=== PATIENT | male | born 1945 | race Caucasian/White ===

== ENCOUNTER → 2018-11-15 | Outpatient (CLI) | payer MEDICARE, OTHER ==
--- NOTE | 2018-11-15 13:17 | RADIOLOGY REPORT (SQ) ---
EXAM DESCRIPTION: U/S SCROTUM W/DOPPLER COMPLETED DATE/TIME: 11/15/2018 12:44 pm REASON FOR STUDY: N50.819 TESTICULAR PAIN, UNSPECIFIED N50.819 TESTICULAR PAIN, UNSPECIFIED COMPARISON: None. TECHNIQUE: Static and realtime sweeney scale imaging of the scrotum and testes. Selected color Doppler and spectral images recorded to document blood flow. LIMITATIONS: None. FINDINGS: RIGHT: TESTICLE: Normal size. Normal echotexture. Normal blood flow. No mass. EPIDIDYMIS: Normal. HYDROCELE OR VARICOCELE: No. HERNIA OR EXTRA-TESTICULAR MASS: No. OTHER: No other significant finding. LEFT: TESTICLE: Normal size. Normal echotexture. Normal blood flow. No mass. EPIDIDYMIS: Normal. HYDROCELE OR VARICOCELE: No. HERNIA OR EXTRA-TESTICULAR MASS: No. OTHER: No other significant finding. IMPRESSION: NORMAL SCROTAL ULTRASOUND. NO EVIDENCE OF TESTICULAR MASS OR TORSION. TECHNICAL DOCUMENTATION: JOB ID: [id number] [employer]- All Rights Reserved Reading location - IP/workstation name: [email or web address]
== END ==
LOC: RAD 10:22
PROVIDERS: ATTEND Internal Medicine
DX: N50.819 Testicular pain, unspecified (principal)
CPT/HCPCS: 76870; 93976

== ENCOUNTER 2019-05-15 20:24 | Emergency (ER) | payer MEDICARE, OTHER ==
[2019-05-15 20:30] VITALS: BP 194/98
--- NOTE | 2019-05-15 20:49 | ER Document Report ---
HPI - HPI Patient complains to provider of: right wrist pain Time Seen by Provider: 05/15/19 20:43 Onset: This morning Onset/Duration: Sudden Quality of pain: Achy Context: 73-year-old male presents the emergency department with complaints of right wrist pain. Reports he was walking his dog and they took off and he fell on his wrist. He reports he was able to go golfing all day but his wrist started hurting later on. He reports pain with supination pronation. No obvious deformity. Denies past medical history of injury to his wrist. Associated Symptoms: None Exacerbated by: Movement Relieved by: Denies Similar symptoms previously: No Recently seen / treated by doctor: No Past Medical History - General Information source: Patient - Social History Smoking Status: Former Smoker Frequency of alcohol use: None Drug Abuse: None Family History: None Patient has suicidal ideation: No Patient has homicidal ideation: No - Past Medical History Cardiac Medical History: Reports: Hx Hypertension Denies: Hx Coronary Artery Disease, Hx Heart Attack Pulmonary Medical History: Denies: Hx Asthma, Hx Bronchitis, Hx COPD, Hx Pneumonia Neurological Medical History: Denies: Hx Cerebrovascular Accident, Hx Seizures Musculoskeletal Medical History: Reports Hx Arthritis - Generalized Surgical Hx: Negative Past Surgical History: Denies: Hx Pacemaker - Immunizations Hx Diphtheria, Pertussis, Tetanus Vaccination: Yes Hx Pneumococcal Vaccination: 07/29/12 Vertical Provider Document - CONSTITUTIONAL Agree With Documented VS: Yes Exam Limitations: No Limitations General Appearance: WD/WN, No Apparent Distress - Patient laughing - INFECTION CONTROL TRAVEL OUTSIDE OF THE [place] IN LAST 30 DAYS: No - HEENT HEENT: Atraumatic, Normocephalic - NECK Neck: Supple - RESPIRATORY Respiratory: No Respiratory Distress - CARDIOVASCULAR Cardiovascular: Regular Rate - MUSCULOSKELETAL/EXTREMETIES Musculoskeletal/Extremeties: MAEW, FROM, Tender - Right wrist tender to palpate dorsally no obvious deformity no swelling no erythema no ecchymosis good radial pulse cap refill less than 3 seconds - NEURO Level of Consciousness: Awake, Alert, Appropriate Motor/Sensory: No Motor Deficit - DERM Integumentary: Warm, Dry Adult Front & Back Diagram: 1 - Patient reports pain Course - Re-evaluation Re-evalutation: 05/15/19 20:47 73-year-old male presents emergency department with right wrist pain after he fell while walking his dogs. Patient was able to golf all day. He was offered pain medication here but declines. X-ray ordered. Patient is right-hand dominant. 05/15/19 21:43 Wrist X-Ray 05/15/19 20:45 IMPRESSION: No acute fracture. X-ray negative. Patient instructed on this Isidro wrap applied. Patient reports he felt better after Isidro wrap. He was instructed to follow-up with primary care for recheck and Ortho referral as indicated. He verbalized understanding to all instructions. Dictation of this chart was performed using voice recognition software; therefore, there may be some unintended grammatical errors. - Vital Signs Vital signs: Temp Pulse Resp BP Pulse Ox 98.5 F 79 194/98 H 100 05/15/19 20:29 05/15/19 20:29 05/15/19 20:29 05/15/19 20:29 - Diagnostic Test Radiology reviewed: Image reviewed, Reports reviewed Procedures - Immobilization Right Wrist Immobilizer type: Isidro wrap Performed by: PCT Post-Proc Neuro Vasc Exam: Unchanged from pre-exam Discharge - Discharge Clinical Impression: Right wrist pain Condition: Stable Disposition: HOME, SELF-CARE Instructions: Isidro Wrap ([facility]), Use of [id number] Ibuprofen ([facility]), Ice & Elevation ([facility]) Additional Instructions: *You have been evaluated for right wrist pain *Maintain the isidro wrap for comfort *Rest/Ice/Elevate your wrist *Follow up with your primary care within 1 week for recheck and referral to orthopedics as indicated. *Take Motrin as indicated for pain *Return to ED for worsening condition, changes, needs Referrals: LAYLA DYSON MD [Primary Care Provider] - Follow up in 1 week
--- NOTE | 2019-05-15 21:28 | RADIOLOGY REPORT (SQ) ---
XR WRIST 3 OR MORE VIEWS BILATERAL CLINICAL STATEMENT: fall pain COMPARISON: None FINDINGS: Bony alignment is anatomic. There is no fracture or dislocation. The soft tissues are unremarkable. Mild deformity of the distal radius and ulna appears well-corticated, consistent with old injury. IMPRESSION: No acute fracture.
== END 2019-05-15 21:41 | disposition home or self-care (01) ==
LOC: ER 20:24
DX: M25.531 Pain in right wrist (principal); W18.39XA Other fall on same level, initial encounter; Y93.K1 Activity, walking an animal; I10 Essential (primary) hypertension

== ENCOUNTER → 2019-05-31 | Outpatient (CLI) | payer MEDICARE, OTHER ==
[2019-05-31 14:30] LABS: ABSOLUTE EOSINOPHILS # (AUTO) 0.2 10^3/uL (0.0-0.6); ABSOLUTE LYMPHOCYTES (AUTO) 1.7 10^3/uL (0.5-4.7); ABSOLUTE MONOCYTES (AUTO) 0.7 10^3/uL (0.1-1.4); ABSOLUTE NEUT (AUTO) 2.6 10^3/uL (1.7-8.2); BASOPHILS % (AUTO) 0.8 % (0-2); EOSINOPHILS % (AUTO) 3.3 % (0-6); HEMATOCRIT 39.6 % (37.9-51.0); HEMOGLOBIN 13.8 g/dL (13.5-17.0); LYMPHOCYTES % (AUTO) 33.1 % (13-45); MEAN CORPUSCULAR HEMOGLOBIN 30.5 pg (27.0-33.4); MEAN CORPUSCULAR HGB CONC 34.9 g/dL (32.0-36.0); MEAN CORPUSCULAR VOLUME 88 fl (80-97); RED BLOOD COUNT 4.53 10^6/uL (4.35-5.55); RED CELL DISTRIBUTION WIDTH 13.2 % (11.5-14.0); SEGMENTED NEUTROPHILS % (AUTO) 49.8 % (42-78); TOTAL CELLS COUNTED % (AUTO) 100 %; WHITE BLOOD COUNT 5.3 10^3/uL (4.0-10.5)
[2019-05-31 14:48] LABS: PLATELET COUNT 37 10^3/uL (150-450)
== END ==
LOC: OD 13:41
PROVIDERS: ATTEND Surgery
DX: D69.6 Thrombocytopenia, unspecified (principal)
CPT/HCPCS: 36415; 85025

== ENCOUNTER → 2019-08-16 | Outpatient (CLI) | payer MEDICARE, OTHER ==
--- NOTE | 2019-08-16 10:35 | RADIOLOGY REPORT (SQ) ---
EXAM DESCRIPTION: KNEE LEFT 2 VIEWS COMPLETED DATE/TIME: 08/16/2019 10:26 am REASON FOR STUDY: PAIN IN LEFT KNEE M25.562 PAIN IN LEFT KNEE COMPARISON: None. NUMBER OF VIEWS: Two views. TECHNIQUE: AP and lateral radiographic images acquired of the left knee. LIMITATIONS: None. FINDINGS: MINERALIZATION: Normal. BONES: No acute fracture or dislocation. No worrisome bone lesions. No significant osteophytes. JOINT: No effusion. No chondrocalcinosis. OTHER: No other significant finding. IMPRESSION: NEGATIVE STUDY OF THE LEFT KNEE. NO EXPLANATION FOR PAIN. TECHNICAL DOCUMENTATION: JOB ID: [id number] 2010 [employer]- All Rights Reserved Reading location - IP/workstation name: [email or web address]
== END ==
LOC: OD 10:09
PROVIDERS: ATTEND Internal Medicine
DX: M25.562 Pain in left knee (principal)

== ENCOUNTER → 2020-05-06 | Outpatient (CLI) | payer MEDICARE, OTHER ==
--- NOTE | 2020-05-06 12:34 | RADIOLOGY REPORT (SQ) ---
EXAM DESCRIPTION: U/S ABDOMEN COMPLETE W/DOPPLER IMAGES COMPLETED DATE/TIME: 05/06/2020 8:59 am REASON FOR STUDY: R94.5 ABNORMAL RESULTS OF LIVER FUNCTION STUDIES R94.5 ABNORMAL RESULTS OF LIVER FUNCTION STUDIES COMPARISON: 09/15/2012 TECHNIQUE: Dynamic and static grayscale images acquired of the abdomen and recorded on PACS. Additio nal selected color Doppler and spectral images recorded. Note: Study does not meet criteria for complete doppler/duplex scan LIMITATIONS: None. FINDINGS: PANCREAS: Echogenic echotexture maybe on the basis of fatty infiltration. LIVER: The liver measures 14.3 cm in length, normal size. Question of hyperechoic area 1.1 x 1.1 x 1.0 cm in the right hepatic lobe. LIVER VASCULATURE: Normal directional flow of the main portal vein and hepatic veins. GALLBLADDER: Interval cholecystectomy. ULTRASOUND-DETECTED GAMBOA'S SIGN: Negative. INTRAHEPATIC DUCTS AND COMMON DUCT: CBD measures 5.0 mm normal. The intrahepatic ducts normal calibe r. No filling defects. INFERIOR VENA CAVA: Normal flow. AORTA: No aneurysm. RIGHT KIDNEY: The right kidney measures 9.7 cm in length, normal size. Normal echogenicity. No david id or suspicious masses. No hydronephrosis. No calcifications. LEFT KIDNEY: Prior left nephrectomy. SPLEEN: The spleen measures 10.3 cm in length, normal size. PERITONEAL AND PLEURAL SPACES: No ascites or effusions. OTHER: No other significant finding. IMPRESSION: 1. Interval cholecystectomy since the prior study dated 09/15/2012. 2. Prior left nephrectomy. 3. Question of a hyperechoic area within the right hepatic lobe. Further evaluation with CT Liver w ith and without contrast suggested. 5. Additional findings as above. TECHNICAL DOCUMENTATION: JOB ID: [id number] [employer]- All Rights Reserved Reading location - IP/workstation name: [email or web address]
== END ==
LOC: RAD 08:14
PROVIDERS: ATTEND Internal Medicine
DX: R94.5 Abnormal results of liver function studies (principal)
CPT/HCPCS: 76700; 93976

== ENCOUNTER → 2020-05-21 | Outpatient (CLI) | payer MEDICARE, OTHER ==
--- NOTE | 2020-05-21 11:47 | RADIOLOGY REPORT (SQ) ---
EXAM DESCRIPTION: CT ABD/PELVIS WITH IV ORAL IMAGES COMPLETED DATE/TIME: 05/21/2020 8:22 am REASON FOR STUDY: US/ ABN FINDINGS W/ LIVER R93.2 ABNORMAL FINDINGS ON DX IMAGING OF LIVER AND BILI GONZALEZ T hyperechoic region in the right hepatic lobe. Cholecystectomy. COMPARISON: Abdominal ultrasound 05/06/2020. Abdominal ultrasound 10/24/2010. TECHNIQUE: CT scan of the abdomen and pelvis performed using helical scanning technique with dynamic intravenous contrast injection. No oral contrast. Images reviewed with lung, soft tissue, and bone windows. Reconstructed coronal and sagittal MPR images reviewed. Delayed images for evaluation of the urinary system also acquired. All images stored on PACS. All CT scanners at this facility use dose modulation, iterative reconstruction, and/or weight based d osing when appropriate to reduce radiation dose to as low as reasonably achievable (ALARA). [facility]: Dose Right [facility]: CareDose [facility]: Dose Right [facility]: Teradose 4D [facility]: [employer] CONTRAST TYPE AND DOSE: contrast/concentration: Isovue 300.00 mmol/ml; Total Contrast Delivered: 74. 0 ml; Total Saline Delivered: 46.0 ml RENAL FUNCTION: GFR > 60. RADIATION DOSE: CT Rad equipment meets quality standard of care and radiation dose reduction techniq ues were employed. CTDIvol: 3.8 - 3.8 mGy. DLP: 396 mGy-cm.. LIMITATIONS: None. FINDINGS: LOWER CHEST: Indeterminate 1.5 x 1.2 cm solid nodule at the right lung base (image 19) see s. No focal consolidation or pleural effusion. LIVER: The liver has normal size and contour. There is mild diffuse hepatic steatosis. Within the r ight hepatic lobe near the gallbladder fossa there is a 1.2 cm hypodense lesion which demonstrates gr adual fill-in on delayed phase images, corresponding to the hyperechoic lesion on ultrasound. This h as been stable since previous abdominal ultrasound in 2010 and is consistent with a benign hepatic he mangioma. No suspicious hepatic mass. Hepatic and portal veins are patent. No biliary ductal dilat ion. SPLEEN: Normal size. No focal lesions. PANCREAS: No masses. No significant calcifications. No adjacent inflammation or peripancreatic fluid collections. Pancreatic duct not dilated. GALLBLADDER: Surgically absent. ADRENAL GLANDS: No significant masses or asymmetry. RIGHT KIDNEY AND URETER: No solid masses. No significant calcifications. No hydronephrosis or hyd roureter. LEFT KIDNEY AND URETER: Post left nephrectomy. Small amount of soft tissue adjacent to the nephrecto my clips measures about 1.2 x 1.1 cm. AORTA AND VESSELS: Calcified and noncalcified atherosclerotic plaque. No dissection or plaque ulcera tion. No aneurysm. Renal arteries, SMA, celiac without stenosis. RETROPERITONEUM: No retroperitoneal adenopathy, hemorrhage or masses. BOWEL AND PERITONEAL CAVITY: There is a left inguinal hernia containing a loop of sigmoid colon with abdominal wall defect measuring 1.5 cm diameter. No fluid or inflammatory change in the hernia sac. No bowel obstruction. No bowel wall thickening or inflammatory change. APPENDIX: Normal. PELVIS: No mass. No free fluid. Normal bladder. Surgical clips bilateral scrotum probably previous v asectomy. ABDOMINAL WALL: No masses. Left inguinal hernia as described above. BONES: Partial sacralization right L5 transverse process. No suspicious bone lesions. OTHER: No other significant finding. IMPRESSION: 1. Benign hepatic hemangioma corresponds to the finding on ultrasound. No suspicious hepatic lesions . 2. Indeterminate solid nodule right lung base. Correlation with any previous outside CT images recom mended. If no previous imaging is available, consider further evaluation with PET CT or three-month follow-up CT chest to evaluate for stability. 3. Small amount of soft tissue at the left nephrectomy bed may represent postoperative change. Clini francisco correlation for reason for nephrectomy recommended. If this was performed for malignancy, compar breann with any previous outside imaging is recommended. if no previous outside imaging is available fo llow-up CT in 3 months is recommended to confirm stability. 4. Mild hepatic steatosis. 5. Left inguinal hernia containing sigmoid colon. No bowel obstruction. TECHNICAL DOCUMENTATION: JOB ID: [id number] Quality ID # [id number]: Final reports with documentation of one or more dose reduction techniques (e.g., Au tomated exposure control, adjustment of the mA and/or kV according to patient size, use of iterative reconstruction technique) 2010 [facility]- All Rights Reserved Reading location - IP/workstation name: [email or web address]
== END ==
LOC: RAD 09:12
PROVIDERS: ATTEND Internal Medicine
DX: R93.2 Abnormal findings on diagnostic imaging of liver and biliary tract (principal)
CPT/HCPCS: 74177; 82565

== ENCOUNTER → 2020-06-04 | Outpatient (CLI) | payer MEDICARE, OTHER ==
--- NOTE | 2020-06-05 11:16 | RADIOLOGY REPORT (SQ) ---
EXAM DESCRIPTION: PET CT SKULL/THIGH IMAGES COMPLETED DATE/TIME: 06/04/2020 10:33 am REASON FOR STUDY: R91.1 SOLITARY PULMONARY NODULE R91.1 SOLITARY PULMONARY NODULE COMPARISON: CT 05/21/2020, no prior pets RADIONUCLIDE AND DOSE: 10.68 mCi F18 FDG The route of agent administration: Intravenous FASTING BLOOD SUGAR: 173 mg/dl CONTRAST TYPE AND DOSE: No CT contrast given. TECHNIQUE: Blood glucose level was verified. Above dose of FDG was injected intravenously. 2-D seg mented attenuation correction images were obtained from the base of the skull to the midthighs. Nonc ontrast CT images were obtained for attenuation correction and fusion with emission images. CT image s were performed without oral or intravenous contrast and are not sensitive for parenchymal lesions. A series of overlapping emission PET images were obtained. Images reviewed and manipulated at [facility] work station by the radiologist. Images stored on PACS. LIMITATIONS: None. FINDINGS: HEAD AND NECK: No areas of abnormal metabolic activity in the soft tissues of the head and neck. CHEST: Multifocal irregular nodular opacity within the left upper lobe along the major fissure. Larg est discrete nodular component measures 7.6 mm (series 3, image 94) with low level FDG uptake (max BARCENAS V 2.8). Right basilar nodule is grossly stable in size measuring 15 x 12 mm (series 3, image 132) an d demonstrates low level uptake (max SUV 2.5). No other discrete areas of pathologic uptake within t he thorax. ABDOMEN AND PELVIS: Nonfocal background hepatic activity max SUV 3.8. No areas of pathologic uptake within the abdomen or pelvis. Physiologic activity noted within the gastrointestinal genitourinary s ystems. PROXIMAL LOWER EXTREMITIES: No areas of abnormal metabolic activity in the soft tissues of the lower extremities. BONES: No abnormal metabolic activity in the visualized skeleton. ADDITIONAL CT FINDINGS: Multinodular left upper lobe opacity as above. Right lower lobe 15 mm nodule , grossly stable and as detailed above. Coronary atherosclerosis. No acute intra-abdominal/pelvic f indings. Prior cholecystectomy. Status post left nephrectomy. Fat containing bilateral inguinal he rnias. No acute bony abnormality. No discrete lytic or blastic osseous lesions. Partial sacralizat ion of L5 on the right. OTHER: No other significant findings. IMPRESSION: 1. Multifocal irregular nodular opacity within the left upper lobe along the major fiss ure with largest discrete nodular component measuring 7.6 mm and demonstrating low level FDG uptake ( max SUV 2.8) which is below background hepatic activity. Grossly stable 15 mm right basilar nodule a lso with low level uptake (max SUV 2.5). Findings indeterminate and may represent infectious/inflamm atory sequela although neoplasm is not entirely excluded. Recommend continued follow-up CT to confir m stability/resolution. 2. No additional areas of pathologic uptake throughout remainder of the exam. TECHNICAL DOCUMENTATION: JOB ID: [id number] 2010 [employer] All Rights Reserved Reading location - IP/workstation name: [email or web address]
== END ==
LOC: RAD 08:05
PROVIDERS: ATTEND Internal Medicine
DX: R91.1 Solitary pulmonary nodule (principal); J98.4 Other disorders of lung
CPT/HCPCS: 78815; A9552

== ENCOUNTER 2020-06-25 14:07 | Emergency (ER) | payer MEDICARE ==
--- NOTE | 2020-06-25 16:10 | EKG REPORT ---
SEVERITY:- OTHERWISE NORMAL ECG - SINUS TACHYCARDIA : Confirmed by: Jeffery Villa MD 25-Jun-2020 16:10:07
--- NOTE | 2020-06-25 16:49 | RADIOLOGY REPORT (SQ) ---
EXAM DESCRIPTION: CHEST SINGLE VIEW IMAGES COMPLETED DATE/TIME: 06/25/2020 1:39 pm REASON FOR STUDY: SOB COMPARISON: 02/18/2012 EXAM PARAMETERS: NUMBER OF VIEWS: One view. TECHNIQUE: Single frontal radiographic view of the chest acquired. RADIATION DOSE: NA LIMITATIONS: None. FINDINGS: LUNGS AND PLEURA: No opacities, masses or pneumothorax. No pleural effusion. MEDIASTINUM AND HILAR STRUCTURES: No masses. Contour normal. HEART AND VASCULAR STRUCTURES: Heart normal in size. Normal vasculature. BONES: No acute findings. HARDWARE: None in the chest. OTHER: No other significant finding. IMPRESSION: NO ACUTE RADIOGRAPHIC FINDING IN THE CHEST. TECHNICAL DOCUMENTATION: JOB ID: [id number] 2010 [employer]- All Rights Reserved Reading location - IP/workstation name: [email or web address]
[2020-06-25 16:52] LABS: HEMATOCRIT 33.6 % (37.9-51.0); HEMOGLOBIN 11.4 g/dL (13.5-17.0); MEAN CORPUSCULAR VOLUME 88 fl (80-97); PLATELET COUNT 236 10^3/uL (150-450); RED CELL DISTRIBUTION WIDTH 16.9 % (11.5-14.0); WHITE BLOOD COUNT 12.1 10^3/uL (4.0-10.5)
[2020-06-25 16:56] LABS: ALBUMIN 2.9 g/dL (3.5-5.0); ALKALINE PHOSPHATASE 90 U/L (38-126); ANION GAP 5 (5-19); ASPARTATE AMINO TRANSFERASE 18 U/L (17-59); BILIRUBIN,DIRECT 0.2 mg/dL (0.0-0.4); BILIRUBIN,TOTAL 0.8 mg/dL (0.2-1.3); BLOOD UREA NITROGEN 24 mg/dL (7-20); CALCIUM 8.9 mg/dL (8.4-10.2); CARBON DIOXIDE 26 mmol/L (22-30); CHLORIDE 106 mmol/L (98-107); GLUCOSE 106 mg/dL (75-110); POTASSIUM 4.6 mmol/L (3.6-5.0)
[2020-06-25 16:58] LABS: TOTAL PROTEIN 6.2 g/dL (6.3-8.2)
[2020-06-25 17:01] LABS: CREATINE KINASE < 20 U/L (55-170)
[2020-06-25 17:12] LABS: CREATINE KINASE MB < 0.22 ng/mL (<4.55); TROPONIN I < 0.012 ng/mL
[2020-06-25 17:16] LABS: ABSOLUTE MONOCYTES # (MANUAL) 0.6 10^3/uL (0.1-1.4); BAND NEUTROPHILS % (MANUAL) 2 % (3-5); BASOPHILS % (MANUAL) 0 % (0-2); EOSINOPHILS % (MANUAL) 1 % (0-6); LYMPHOCYTES % (MANUAL) 8 % (13-45); METAMYELOCYTES % (MANUAL) 1 % (0-1); MONOCYTES % (MANUAL) 5 % (3-13); SEGMENTED NEUTROPHILS % (MAN) 83 % (42-78); TOTAL CELLS COUNTED 100
--- NOTE | 2020-06-25 17:18 | ER Document Report ---
ED General - General Chief Complaint: Arrhythmia Stated Complaint: SHORT OF BREATH Time Seen by Provider: 06/25/20 17:18 Primary Care Provider: LAYLA DYSON MD [Primary Care Provider] - Follow up as needed TRAVEL OUTSIDE OF THE [place] IN LAST 30 DAYS: No - HPI Notes: 74-year-old male presents with shortness of breath. Patient has been experiencing shortness of breath, more so dyspnea on exertion for the past 2 weeks. Patient states that initially started on a Wednesday evening. He states that he had worked 10 hours that day, there was a lot of walking involved and it was warm out. When he came home at night he said he felt done, he was fatigued and this is when the shortness of breath developed. Patient noticed that this past Wednesday, 2 days ago, he was attempting to walk upstairs, he made it to about the 8 step and became short of breath, had to stop and catch his breath. He has noted similar episodes of this over the past 2 days. He states that he will have to take deep breaths in order to help catch his breath. He also has had a cough for the past 3 days, nonproductive, described as a scratchy feeling. He denies fever. He denies chest pain. Though notes that intermittently he will have a tingle on the left side of his chest. No GI symptoms. He reports compliance with his medications, which do include lisinopril and Coreg. He states that he went to his doctor's office today to be evaluated for symptoms, he was found to be tachycardic to the 130s therefore sent to the ED for evaluation. Of note patient has recently discontinued steroids. Patient states that he was going to have a hernia surgery, however was found that his platelets were low therefore he was started on 60 mg prednisone daily. He states that he was on 60 mg daily for about 30 days. He then saw Dr. Blake who started a taper, was cut back to 2 pills/day, and last week was stopped from all steroids. - Related Data Allergies/Adverse Reactions: No Known Allergies Allergy (Verified 06/25/20 16:07) Home Medications: patient states 'should all be in my file' Past Medical History - General Information source: Patient - Social History Smoking Status: Never Smoker Family History: None - Past Medical History Cardiac Medical History: Reports: Hx Hypertension Denies: Hx Coronary Artery Disease, Hx Heart Attack Pulmonary Medical History: Denies: Hx Asthma, Hx Bronchitis, Hx COPD, Hx Pneumonia Neurological Medical History: Denies: Hx Cerebrovascular Accident, Hx Seizures Musculoskeletal Medical History: Reports Hx Arthritis - Generalized Past Surgical History: Denies: Hx Pacemaker - Immunizations Hx Diphtheria, Pertussis, Tetanus Vaccination: Yes Hx Pneumococcal Vaccination: 07/29/12 Review of Systems - Review of Systems Constitutional: denies: Fever EENT: No symptoms reported Cardiovascular: Heart racing. denies: Chest pain Respiratory: Short of breath Gastrointestinal: denies: Abdominal pain, Nausea, Vomiting Genitourinary: No symptoms reported Male Genitourinary: No symptoms reported Musculoskeletal: No symptoms reported Skin: No symptoms reported Hematologic/Lymphatic: No symptoms reported Neurological/Psychological: No symptoms reported Physical Exam - Vital signs Vitals: Temp Pulse Resp BP Pulse Ox 97.4 F 137 H 16 103/71 98 06/25/20 14:39 06/25/20 14:39 06/25/20 14:39 06/25/20 14:39 06/25/20 14:39 - General General appearance: Appears well, Alert In distress: None - HEENT Head: Normocephalic, Atraumatic Extraocular movements intact: Yes Pupils: PERRL - Respiratory Respiratory status: No: Labored, Tachypnea Breath sounds: Normal Notes: Speaks in full sentences - Cardiovascular Rhythm: Regular, Tachycardia Heart sounds: Normal auscultation Normal capillary refill: Yes - Abdominal Tenderness: Nontender - Extremities General lower extremity: No: Edema - Neurological Neuro grossly intact: Yes Cognition: Normal Orientation: AAOx4 - Psychological Associated symptoms: Normal affect - Skin Skin Temperature: Warm Course - Re-evaluation Re-evalutation: 74-year-old male history of hypertension here with dyspnea on exertion x2 weeks. Seen at primary care's office today and was found to be tachycardic. On exam patient is alert and well-appearing, he is tachycardic, otherwise hemodynamically stable. Lungs are clear, no peripheral edema. EKG with sinus tachycardia, otherwise nonischemic. Chest x-ray without consolidation. Will obtain CTA chest to evaluate for PE given the GREGORY and tachycardia, will also able to get a good look at the lung parra to see if there is an occult pneumonia present. No known Covid exposures, so was concerned for control given the current pandemic. Additionally, potentially related to acute steroid withdrawal. 06/25/20 19:31 Mild leukocytosis, with increased neutrophils, infection versus steroid response. Electrolytes within normal limits. Creatinine mild elevation, no recent for comparison. Troponin negative. No elevation of BNP. Random cortisol is not low. CTA chest has resulted. There is no evidence of PE. There is a right lower lobe nodule again demonstrated, measurements fairly consistent from previous, along with 2 other pulmonary nodules which are overall read as not significantly changed. Comments that there is some patchy opacities in the lateral left upper lobe, decreased from prior examination and probably representing improving infectious process. Additionally, on one image there appears to be a small penetrating ulcer to the distal aortic arch. Consider this to be an incidental finding of the descending aorta. Reviewed patient's previous imaging, I do not see any recent CT chest, therefore consider the patchy infiltrates of the left lobe to potentially be an acute process. 06/25/20 19:33 Tachycardia is improving 06/25/20 19:40 Patient updated on results so far, he reports he is feeling better, heart rate ranging 97 to low 100s in the room 06/25/20 19:[address] Dyson patient's work-up today. Agrees to treat the possible pneumonia. I discussed the need for outpatient referral to vascular or cardiothoracic surgery so that the atherosclerosis can be followed up. 06/25/20 22:54 Patient has remained stable while in the emergency department. He continues to be well-appearing, he feels comfortable going home. Return precautions given, stable at time of discharge. - Vital Signs Vital signs: Temp Pulse Resp BP Pulse Ox 97.5 F 137 H 18 120/85 97 06/25/20 19:10 06/25/20 14:39 06/25/20 22:01 06/25/20 22:00 06/25/20 22:01 - Laboratory Results Result Diagrams: 06/25/20 16:19 06/25/20 16:19 Laboratory Results Interpreted: 06/25/20 06/25/20 16:19 16:19 WBC 12.1 H RBC 3.80 L Hgb 11.4 L Hct 33.6 L RDW 16.9 H Seg Neuts % (Manual) 83 H Band Neutrophils % 2 L Lymphocytes % (Manual) 8 L Abs Neuts (Manual) 10.4 H BUN 24 H Creatinine 1.39 H Est GFR (MDRD) Non-Af 50 L Creatine Kinase < 20 L Total Protein 6.2 L Albumin 2.9 L Critical Laboratory Results Reviewed: No Critical Results - Radiology Results Critical Radiology Results Reviewed: No Critical Results Discharge - Discharge Clinical Impression: Aortic arch atherosclerosis CAP (community acquired pneumonia) Qualifiers: Laterality: left Lung location: upper lobe of lung Qualified Code(s): J18.9 - Pneumonia, unspecified organism Disposition: HOME, SELF-CARE Additional Instructions: Please begin a course of antibiotics. Please call Dr. Schmid tomorrow morning to discuss follow-up. As discussed, there is evidence of atherosclerotic ulcer on your aorta, I discussed with Dr. Miranda, please be sure you receive a referral to a vascular surgeon. Return to the emergency department for any concerning worsening symptoms. Prescriptions: Amoxicillin/Potassium Clav [Augmentin 875-125 Tablet] 1 tab PO NOW 7 Days #14 tablet Azithromycin [Zithromax 250 mg Tablet] 250 mg PO ASDIR PRN #6 tablet PRN Reason: Referrals: LAYLA DYSON MD [Primary Care Provider] - Follow up as needed
[2020-06-25 17:21] LABS: PLATELET COMMENT ADEQUATE; POIKILOCYTOSIS SLIGHT
[2020-06-25 17:22] LABS: ANISOCYTOSIS 1+
[2020-06-25] MEDS ORDERED: RINGERS SOLUTION,LACTATED 1,000 ML IV ONE ×2 (17:29→19:47)
--- NOTE | 2020-06-25 18:44 | RADIOLOGY REPORT (SQ) ---
EXAM DESCRIPTION: CTA CHEST IMAGES COMPLETED DATE/TIME: 06/25/2020 3:19 pm REASON FOR STUDY: SOB, tachycardia, eval PE COMPARISON: PET CT 06/04/[address] abdomen pelvis 05/21/2020 TECHNIQUE: CT scan of the chest performed using helical scanning technique with dynamic intravenous contrast injection. Images reviewed with lung, soft tissue and bone windows. Reconstructed coronal and sagittal MPR images reviewed. Additional 3 dimensional post-processing performed to develop Maximal Intensity Projection images (AK P). All images stored on PACS. All CT scanners at this facility use dose modulation, iterative reconstruction, and/or weight based d osing when appropriate to reduce radiation dose to as low as reasonably achievable (ALARA). [facility]: Dose Right [facility]: CareDose [facility]: Dose Right [facility]: Teradose 4D [facility]: [employer] CONTRAST TYPE AND DOSE: contrast/concentration: Isovue 350.00 mmol/ml; Total Contrast Delivered: 52. 0 ml; Total Saline Delivered: 72.0 ml Contrast bolus adequate for pulmonary arteries and aorta. RENAL FUNCTION: Creatinine 1.39 RADIATION DOSE: CT Rad equipment meets quality standard of care and radiation dose reduction techniq ues were employed. CTDIvol: 6.6 - 14.3 mGy. DLP: 532 mGy-cm. . LIMITATIONS: None. FINDINGS: LUNGS AND PLEURA: 1.4 x 1.1 cm right lower lobe nodule is again demonstrated, previously m easuring 1.4 x 1.4 cm by my measurements. There is lucency within this nodule which appears to repre sent a tiny bronchogram as opposed to central cavitation. Some mild centrilobular emphysema. Nodula r opacity in the right lung apex is stable. Some patchy opacities in the lateral left upper lobe hav e slightly decreased from prior examination and probably represent improving infectious process. Ant erior left upper lobe nodule (series 4, image 70) is also likely not significantly changed. No new s uspicious nodule or consolidation identified. . AORTA AND GREAT VESSELS: There appears to be a small penetrating ulcer at the distal aspect of the ao rtic arch (series 3, image 36), measuring up to 9 mm. No thoracic aortic aneurysm. HEART: No pericardial effusion. Coronary artery calcifications. PULMONARY ARTERIES: No filling defects in the main, right or left pulmonary arteries. No filling def ects in the lobar, segmental, or visualized subsegmental pulmonary arteries. HILAR AND MEDIASTINAL STRUCTURES: No identified masses or abnormal nodes. HARDWARE: None in the chest. UPPER ABDOMEN: No significant findings. Limited exam. THYROID AND OTHER SOFT TISSUES: No masses. No adenopathy. BONES: Small sclerotic focus in the sternum was present on prior PET CT and did not appear to demonst rate significant increased uptake. No suspicious bone lesions. 3D MIPS: Confirm above findings. OTHER: No other significant finding. IMPRESSION: 1. No visualized pulmonary embolism. 2. Atherosclerotic plaque in the thoracic aorta with small probable penetrating ulcer at the distal aspect of the aortic arch. Continued close follow-up is recommended. 3. Right lower lobe pulmonary nodule measuring up to 1.4 cm again demonstrated. Recommend continued close follow-up in 3 months to assess stability. Additional opacities described above can also be r eassessed on follow-up. COMMENT: Quality ID # [id number]: Final reports with documentation of one or more dose reduction techniques (e.g., Automated exposure control, adjustment of the mA and/or kV according to patient size, use of iterative reconstruction technique) TECHNICAL DOCUMENTATION: JOB ID: [id number] 2010 [employer]- All Rights Reserved Reading location - IP/workstation name: [email or web address]
[2020-06-25] MEDS ORDERED: CEFTRIAXONE 1 GM/D5W RTU 1 GM/50 ML RTUPB IV ONE (22:30)
[2020-06-25 23:59] VITALS: BP 103/73
== END 2020-06-25 23:59 | disposition home or self-care (01) ==
LOC: ER 14:07
DX: J18.9 Pneumonia, unspecified organism (principal); I70.0 Atherosclerosis of aorta; R06.02 Shortness of breath; R05 Cough; I10 Essential (primary) hypertension; R00.0 Tachycardia, unspecified; R91.8 Other nonspecific abnormal finding of lung field; Z79.899 Other long term (current) drug therapy
CPT/HCPCS: 93005; 99285; 96361; 96365; 36415; 82553; 82550; 85025; 80053; 84484; 82533; 83880; 71045; 71275; 93010; J7120; J0696

== ENCOUNTER → 2020-07-10 | Outpatient (CLI) | payer MEDICARE, OTHER ==
[~2020-07-10] MED LIST: REGADENOSON INJ 0.4 MG/5 ML DISP.SYRIN IV ONE
--- NOTE | 2020-07-10 19:52 | DRAGON STRESS TEST REPORT ---
Intravenous Lexiscan Cardiolite stress test using single photon emmision computerized tomography. Date of procedure: 07/10/2020. Ordering Provider: Dr. Lopez. Patient's status:. Out Patient. Indication: Shortness of breath.. Coronary risk factors: Age, hypertension, dyslipidemia, and tobacco abuse disorder. Resting EKG: Sinus Rhythm. Within Normal Limits. Stress EKG: No changes of ischemia. The patient had no chest pain or discomfort or shortness of breath. There was no arrhythmias seen. Reason for termination: Protocol. Conclusions: Normal EKG and hemodynamic response to IV Lexiscan. Nuclear data: At rest the patient was given 10.07 millicuries of technetium 99m sestamibi injected intravenously. As per protocol rest non gated SPECT images were obtained. Subsequently the patient was given intravenous Lexiscan at a dose of 0.4 mg in 5 mL intravenously, followed by flush with normal saline. Subsequently the stress dose of 32.8 millicuries of technetium 99m sestamibi was injected intravenously. As per protocol stress gated images were obtained. Nuclear interpretation: Review of images showed that all segments of the myocardium had normal perfusion at rest, and normal perfusion post stress with IV Lexiscan. All segments of the myocardium had normal motion, contraction, and thickening by gated study. T. I D. ratio was normal at 0.93. There is no transient ischemic dilatation of the left ventricle. Computer read rest, and stress left ventricular ejection fraction were 59%, and 60%, respectively. Conclusion: 1. There is no scintigraphic evidence of Lexiscan induced myocardial ischemia. 2. There is no scintigraphic evidence of myocardial infarction/scar. Recommendations: Aggressive risk factor modification, and treating the underlying co- morbidities. MTDD
--- NOTE | 2020-07-10 19:58 | DRAGON STRESS TEST REPORT ---
Intravenous Lexiscan Cardiolite stress test using single photon emmision computerized tomography. Date of procedure: 07/10/2020. Ordering Provider: Dr. Lopez. Patient's status: Out Patient. Indication: Shortness of breath.. Coronary risk factors: Age, hypertension, dyslipidemia, and tobacco abuse disorder Resting EKG: Sinus Rhythm. Normal EKG Stress EKG: No changes of ischemia. The patient had no chest pain or discomfort or shortness of breath. There was no arrhythmias seen. Reason for termination: Protocol. Conclusions: Normal EKG and hemodynamic response to IV Lexiscan. Nuclear data: At rest the patient was given 10.07 millicuries of technetium 99m sestamibi injected intravenously. As per protocol rest non gated SPECT images were obtained. Subsequently the patient was given intravenous Lexiscan at a dose of 0.4 mg in 5 mL intravenously, followed by flush with normal saline. Subsequently the stress dose of 32.8 millicuries of technetium 99m sestamibi was injected intravenously. As per protocol stress gated images were obtained. Nuclear interpretation: Review of images showed that all segments of the myocardium had normal perfusion at rest, and normal perfusion post stress with IV Lexiscan. All segments of the myocardium had normal motion, contraction, and thickening by gated study. T. I D. ratio was normal at 0.93. There is no transient ischemic dilatation of the left ventricle. Computer read rest, and stress left ventricular ejection fraction were 59%, and 60%, respectively. Conclusion: 1. There is no scintigraphic evidence of Lexiscan induced myocardial ischemia. 2. There is no scintigraphic evidence of myocardial infarction/scar. Recommendations: Aggressive risk factor modification, and treating the underlying co- morbidities. MTDD
== END ==
LOC: RAD 07:05
PROVIDERS: ATTEND Internal Medicine
DX: R06.02 Shortness of breath (principal); I10 Essential (primary) hypertension; E78.5 Hyperlipidemia, unspecified; Z72.0 Tobacco use
CPT/HCPCS: 93017; 78452; A9500; J2785; Q9969